=== PATIENT | male | born 1950 | race American Indian/Alaskan Native ===

== ENCOUNTER 2016-11-24 08:18 | Outpatient (CLI) | payer MEDICARE ==
--- NOTE | 2016-11-24 12:06 | Cat Scan Report ---
CT scan of abdomen and pelvis without IV contrast: History: Prostate cancer. Findings: Normal lung bases. No pleural or pericardial effusion. Normal liver spleen pancreas and gallbladder. Gastritis with retained food particles in the stomach. Normal adrenals kidneys and bladder. Prostate measures 5.5 x 5.6 cm. No free intraperitoneal fluid. No evidence of adenopathy. Normal appendix. No evidence of diverticulitis. Gaseous colon with moderate volume stool in colon. No lytic or blastic lesions the skeleton. Arthritic changes. Impression: Enlarged prostate. Gastritis with retained food particles in the stomach.
--- NOTE | 2016-11-25 13:43 | Nuclear Medicine Report ---
NUCLEAR MEDICINE WHOLE-BODY BONE SCAN: 11/24/16 CLINICAL: Prostate cancer. COMPARISON: None. TECHNIQUE: 25.0millicuries technetium 99m MDP was injected intravenously and whole body scans were obtained at 3 hours. FINDINGS: Normal distribution of radionuclide in the skeleton and soft tissues except for benign multifocal activity in the shoulders and probably benign focal uptake in the right hindfoot. IMPRESSION: Probably benign focal uptake in the right hindfoot. Recommend confirmation with a foot x-ray. Study is otherwise negative.
== END 2016-11-24 08:19 | disposition home or self-care (01) ==
LOC: NM 08:18
PROVIDERS: ATTEND Urology
DX: C61 Malignant neoplasm of prostate (principal); N40.0 Benign prostatic hyperplasia without lower urinary tract symptoms; K29.70 Gastritis, unspecified, without bleeding
CPT/HCPCS: 74176; 78306; A9503